=== PATIENT | female | born 1985 | race Caucasian/White ===

== ENCOUNTER 2016-06-13 16:43 | Emergency (ER) | payer OTHER ==
[~2016-06-13] VITALS: Ht 154.9 cm; Wt 54.5 kg
[~2016-06-13 16:43] MED LIST: ABILIFY2 MG PO; ADVIL,NUPRIN,M200 MG PO; ALBUTEROL1 GM MC; AMBIEN10 MG PO; AMOXICILLIN250 MG PO; ESCITALOPRAM OX10 MG PO; HYDROXYZINE PAM25 MG PO; LEXAPRO20 MG PO; METHADOSE40 MG PO; MIRTAZAPINE15 MG PO; MOTRIN800 MG PO; NOHOMEMEDS; PERCOCET 5/31 TABLET PO; PRILOSEC40 MG PO; SEROQUEL XR300 MG PO; TRAZODONE HCL50 MG PO; ZOFRAN ODT4 MG PO; ZOFRAN4 MG PO
[2016-06-13] MEDS ORDERED: MOTRIN600 MG PO (18:26)
[2016-06-13 18:32] VITALS: BP 136/87
== END 2016-06-13 18:32 | disposition home or self-care (01) ==
LOC: EME 16:43
DX: S93.402A Sprain of unspecified ligament of left ankle, initial encounter (principal); W00.0XXA Fall on same level due to ice and snow, initial encounter; F17.200 Nicotine dependence, unspecified, uncomplicated
CPT/HCPCS: 73610; 99281; 99283

== ENCOUNTER 2016-08-30 23:11 | Emergency (ER) | payer SELFPAY ==
[~2016-08-30] VITALS: Ht 154.9 cm; Wt 52.4 kg
[~2016-08-30 23:11] MED LIST changes: +MOTRIN600 MG PO
[2016-08-31] MEDS ORDERED: ZOFRAN ODT4 MG PO (01:22)
[2016-08-31] MEDS ORDERED: NAPROSYN500 MG PO (01:22)
[2016-08-31 01:44] VITALS: BP 134/81
== END 2016-08-31 01:45 | disposition home or self-care (01) ==
LOC: EME 23:11
DX: S09.90XA Unspecified injury of head, initial encounter (principal); M54.2 Cervicalgia; Y04.2XXA Assault by strike against or bumped into by another person, initial encounter; Y07.03 Male partner, perpetrator of maltreatment and neglect; F17.200 Nicotine dependence, unspecified, uncomplicated
CPT/HCPCS: 99281; 99284

== ENCOUNTER 2016-11-06 00:49 | Emergency (ER) | payer SELFPAY ==
[~2016-11-06] VITALS: Ht 162.6 cm; Wt 54.5 kg
[~2016-11-06 00:49] MED LIST changes: +NAPROSYN500 MG PO
[2016-11-06 01:25] LABS: HEMATOCRIT 40.6 % (36.0-46.0); MCH 31.1 PG (29.0-34.0); MCV 91.4 FL (83-99); MEAN PLAT.VOLUME 9.3 uM^3 (9.5-12.4); PLATELET COUNT 396 K/uL (156-360); RBC DIS.WIDTH-CV 12.3 % (11.8-14.6); RBC DIS.WIDTH-SD 41.1 % (39-53); RED BLOOD COUNT 4.44 M/uL (3.80-5.20); WHITE BLOOD COUNT 10.5 K/uL (4.1-10.2)
[2016-11-06 01:34] LABS: CHLORIDE 103 mEq/L (99-109); POTASSIUM 3.8 mEq/L (3.7-5.4); SODIUM 140 mEq/L (136-147)
[2016-11-06 01:37] LABS: ANION GAP 14 MEQ/L (2-14); GLUCOSE 114 mg/dL (70-99)
[2016-11-06 01:38] LABS: TOTAL BILIRUBIN 0.5 mg/dL (0.0-1.0)
[2016-11-06 01:40] LABS: ALKALINE PHOSPHATASE 39 IU/L (3-129); GFR ESTIMATE (CALCULATED) > 59 mL/min/
[2016-11-06 01:41] LABS: UREA NITROGEN (BUN) 10 mg/dL (9-23)
[2016-11-06 01:48] LABS: QUANTITATIVE HCG < 4.0 MIU/ML
[2016-11-06 05:35] LABS: BILIRUBIN NEGATIVE; BLOOD NEGATIVE; COLOR YELLOW ((YELLOW)); GLUCOSE (STRIP) NEGATIVE; KETONES 80; LEUKOCYTES NEGATIVE; NITRITE NEGATIVE; PROTEIN (STRIP) 30; UROBILINOGEN 0.2 MG/DL (0.2-1.0)
[2016-11-06 06:01] LABS: ADD MIUA? NO; UCUL ADDED? NO
[2016-11-06] MEDS ORDERED: CODEINE SULFATE30 MG PO (06:03)
[2016-11-06] MEDS ORDERED: REGLAN10 MG PO (06:03)
[2016-11-06 06:20] VITALS: BP 130/74
[2016-11-06 06:29] LABS: SPECIFIC GRAVITY 1.082 (1.000-1.030)
== END 2016-11-06 06:22 | disposition home or self-care (01) ==
LOC: EME 00:49
DX: K52.9 Noninfective gastroenteritis and colitis, unspecified (principal); E86.0 Dehydration; K50.90 Crohn's disease, unspecified, without complications; F31.9 Bipolar disorder, unspecified; F41.9 Anxiety disorder, unspecified; G47.00 Insomnia, unspecified; F17.200 Nicotine dependence, unspecified, uncomplicated
CPT/HCPCS: 74177; 80053; 81003; 84702; 85027; 99281; 99285; J1200; J1885; J2405; J2765; J3010; J7030

== ENCOUNTER 2016-11-18 23:41 | Emergency (ER) | payer SELFPAY ==
[~2016-11-18] VITALS: Ht 154.9 cm; Wt 47.1 kg
[~2016-11-18 23:41] MED LIST changes: +CODEINE SULFATE30 MG PO; +REGLAN10 MG PO
[2016-11-19 01:36] LABS: BASOPHIL COUNT 0.1 K/uL (0-0.1); EOSINOPHIL (%) 6.6 % (0-5); EOSINOPHIL COUNT 0.5 K/uL (0-0.3); HEMATOCRIT 35.9 % (36.0-46.0); IMMATURE GRANULOCYTE (%) 0.4 % (0.0-0.7); INSTRUMENT ABS NEUTROPHIL CT 3.8 K/uL; LYMPHOCYTE COUNT 2.2 K/uL (1.0-2.8); MCH 30.8 PG (29.0-34.0); MCHC 33.4 G/DL (30.0-36.0); MCV 92.3 FL (83-99); MEAN PLAT.VOLUME 9.2 uM^3 (9.5-12.4); MONOCYTE (%) 11.9 % (3-12); MONOCYTE COUNT 0.9 K/uL (0-0.8); NEUTROPHIL COUNT 3.8 K/uL (1.8-6.4); PLATELET COUNT 325 K/uL (156-360); RBC DIS.WIDTH-CV 12.7 % (11.8-14.6); RBC DIS.WIDTH-SD 42.6 % (39-53); RED BLOOD COUNT 3.89 M/uL (3.80-5.20); WHITE BLOOD COUNT 7.4 K/uL (4.1-10.2)
[2016-11-19 01:49] LABS: CHLORIDE 106 mEq/L (99-109); POTASSIUM 3.1 mEq/L (3.7-5.4); SODIUM 140 mEq/L (136-147)
[2016-11-19 01:51] LABS: GLUCOSE 157 mg/dL (70-99)
[2016-11-19 01:53] LABS: ANION GAP 7 MEQ/L (2-14)
[2016-11-19 01:54] LABS: SERUM ETHYL ALCOHOL < 10 mg/dL
[2016-11-19 01:55] LABS: GFR ESTIMATE (CALCULATED) > 59 mL/min/
[2016-11-19 01:57] LABS: UREA NITROGEN (BUN) 8 mg/dL (9-23)
[2016-11-19 01:58] LABS: SALICYLATE < 5.0 MG/DL (15-30)
[2016-11-19 03:09] VITALS: BP 136/87
== END 2016-11-19 03:10 | disposition home or self-care (01) ==
LOC: EME 23:41
PROVIDERS: Emergency Medicine
DX: F13.19 Sedative, hypnotic or anxiolytic abuse with unspecified sedative, hypnotic or anxiolytic-induced disorder (principal); F31.9 Bipolar disorder, unspecified; F60.3 Borderline personality disorder; E87.6 Hypokalemia; F17.200 Nicotine dependence, unspecified, uncomplicated
CPT/HCPCS: 80048; 85025; 90839; 93005; 99281; 99285; G0480

== ENCOUNTER 2016-11-22 17:30 | Inpatient (IN) | payer OTHER ==
[~2016-11-22] VITALS: Ht 154.9 cm; Wt 50.0 kg
[2016-11-22 18:20] LABS: HEMATOCRIT 37.8 % (36.0-46.0); MCH 30.9 PG (29.0-34.0); MCHC 32.8 G/DL (30.0-36.0); MCV 94.3 FL (83-99); PLATELET COUNT 328 K/uL (156-360); RBC DIS.WIDTH-CV 12.9 % (11.8-14.6); RBC DIS.WIDTH-SD 44.9 % (39-53); RED BLOOD COUNT 4.01 M/uL (3.80-5.20); WHITE BLOOD COUNT 7.5 K/uL (4.1-10.2)
[2016-11-22 18:28] LABS: CHLORIDE 102 mEq/L (99-109); SODIUM 138 mEq/L (136-147)
[2016-11-22 18:31] LABS: GLUCOSE 148 mg/dL (70-99)
[2016-11-22 18:32] LABS: ANION GAP 9 MEQ/L (2-14); TOTAL BILIRUBIN 0.2 mg/dL (0.0-1.0)
[2016-11-22 18:33] LABS: SERUM ETHYL ALCOHOL < 10 mg/dL
[2016-11-22 18:34] LABS: ALKALINE PHOSPHATASE 38 IU/L (3-129); GFR ESTIMATE (CALCULATED) > 59 mL/min/
[2016-11-22 18:35] LABS: UREA NITROGEN (BUN) 11 mg/dL (9-23)
[2016-11-22 18:39] LABS: POTASSIUM 3.9 mEq/L (3.7-5.4)
[2016-11-22 20:37] LABS: ADD MIUA? YES; BILIRUBIN NEGATIVE; BLOOD NEGATIVE; COLOR YELLOW ((YELLOW)); GLUCOSE (STRIP) NEGATIVE; KETONES NEGATIVE; LEUKOCYTES LARGE; NITRITE NEGATIVE; PROTEIN (STRIP) 30; SPECIFIC GRAVITY 1.018 (1.000-1.030); UROBILINOGEN 0.2 MG/DL (0.2-1.0)
[2016-11-22 20:51] LABS: AMPHETAMINE NEGATIVE (500 ng/mL); BARBITURATES NEGATIVE (200 ng/mL); BENZODIAZEPINES NEGATIVE (150 ng/mL); COCAINE PRESUMPTIVE POSITIVE (150 ng/mL); METHADONE NEGATIVE (200 ng/mL); METHAMPHETAMINE NEGATIVE (500 ng/mL); OPIATES (MORPHINE) NEGATIVE (100 ng/mL); OXYCODONE NEGATIVE (100 ng/mL); PHENCYCLIDINE NEGATIVE (25 ng/mL); THC CANNABINOIDS NEGATIVE (50 ng/mL); TRICYCLIC ANTIDEPRESSANTS NEGATIVE (300 ng/mL)
[2016-11-22 20:52] LABS: ADD MEDTOX COMMENT Y; INTERNAL CONTROLS VALID? YES; PROPOXYPHENE NEGATIVE (300 ng/mL)
[2016-11-22 21:04] LABS: BACTERIA 2+ /HPF; EPITHELIAL CELLS 4+ /HPF; MUCUS NONE SEEN /LPF; RED BLOOD CELLS 0-5 /HPF (0-5); WHITE BLOOD CELLS TNTC /HPF (0-5)
[2016-11-23 02:49] VITALS: BP 112/67
[2016-11-23 08:05] VITALS: BP 105/66
[2016-11-23 15:29] VITALS: BP 110/65
[2016-11-23 21:40] VITALS: BP 111/58
[2016-11-24 07:26] VITALS: BP 96/55
[2016-11-24 15:38] VITALS: BP 112/62
[2016-11-25 07:35] VITALS: BP 106/59
[2016-11-25 16:36] VITALS: BP 109/56
[2016-11-26 07:59] VITALS: BP 104/61
[2016-11-26 15:34] VITALS: BP 122/65
[2016-11-27 07:44] VITALS: BP 93/55
[2016-11-27] MEDS ORDERED: ESCITALOPRAM OX10 MG PO (10:02)
[2016-11-27] MEDS ORDERED: MIRTAZAPINE15 MG PO (10:02)
== END 2016-11-27 12:44 | disposition home or self-care (01) | DRG 897 ==
LOC: EME 17:30 → 1WEST 21:21 → EDOF 21:21 → 1WEST 11-23 02:30
PROVIDERS: Emergency Medicine
DX: F11.24 Opioid dependence with opioid-induced mood disorder (principal); R45.851 Suicidal ideations; Z68.1 Body mass index [BMI] 19.9 or less, adult; K50.90 Crohn's disease, unspecified, without complications; F11.23 Opioid dependence with withdrawal; F17.210 Nicotine dependence, cigarettes, uncomplicated; T22.019A Burn of unspecified degree of unspecified forearm, initial encounter; X76.XXXA Intentional self-harm by smoke, fire and flames, initial encounter; Z91.19 Patient's noncompliance with other medical treatment and regimen; Z91.14 Patient's other noncompliance with medication regimen
CPT/HCPCS: 80053; 81003; 84999; 85027; 90839; 97150 GO; 97165 GO; 99281; 99285; G0480; Q0169; Q0177

== ENCOUNTER 2016-12-04 22:36 | Emergency (ER) | payer SELFPAY ==
[~2016-12-04] VITALS: Ht 154.9 cm; Wt 50.0 kg
[2016-12-04 23:13] LABS: HEMATOCRIT 38.1 % (36.0-46.0); MCHC 33.6 G/DL (30.0-36.0); MCV 92.3 FL (83-99); MEAN PLAT.VOLUME 9.1 uM^3 (9.5-12.4); PLATELET COUNT 343 K/uL (156-360); RBC DIS.WIDTH-CV 11.9 % (11.8-14.6); RBC DIS.WIDTH-SD 40.4 % (39-53); RED BLOOD COUNT 4.13 M/uL (3.80-5.20); WHITE BLOOD COUNT 13.2 K/uL (4.1-10.2)
[2016-12-04 23:21] LABS: CHLORIDE 105 mEq/L (99-109); POTASSIUM 3.7 mEq/L (3.7-5.4); SODIUM 142 mEq/L (136-147)
[2016-12-04 23:23] LABS: GLUCOSE 125 mg/dL (70-99)
[2016-12-04 23:25] LABS: ANION GAP 9 MEQ/L (2-14); TOTAL BILIRUBIN 0.2 mg/dL (0.0-1.0)
[2016-12-04 23:27] LABS: ALKALINE PHOSPHATASE 41 IU/L (3-129); GFR ESTIMATE (CALCULATED) > 59 mL/min/
[2016-12-04 23:28] LABS: UREA NITROGEN (BUN) 10 mg/dL (9-23)
[2016-12-04 23:37] LABS: QUANTITATIVE HCG < 4.0 MIU/ML
[2016-12-05 02:50] LABS: LIPASE 20 U/L (1.0-51.0)
[2016-12-05 04:35] LABS: ADD MIUA? YES; BILIRUBIN NEGATIVE; BLOOD NEGATIVE; COLOR YELLOW ((YELLOW)); GLUCOSE (STRIP) 50; KETONES 20; LEUKOCYTES LARGE; NITRITE NEGATIVE; PROTEIN (STRIP) 30; SPECIFIC GRAVITY 1.029 (1.000-1.030); UROBILINOGEN 0.2 MG/DL (0.2-1.0)
[2016-12-05 04:39] LABS: BACTERIA NONE SEEN /HPF; EPITHELIAL CELLS 2+ /HPF; MUCUS TRACE /LPF; RED BLOOD CELLS 0-5 /HPF (0-5); UCUL ADDED? YES; WHITE BLOOD CELLS TNTC /HPF (0-5)
[2016-12-05] MEDS ORDERED: ZOFRAN ODT4 MG PO (05:22)
[2016-12-05 05:31] LABS: SERUM ETHYL ALCOHOL < 10 mg/dL
[2016-12-05 05:57] VITALS: BP 142/99
== END 2016-12-05 05:58 | disposition home or self-care (01) ==
LOC: EME 22:36
DX: R10.84 Generalized abdominal pain (principal); K50.90 Crohn's disease, unspecified, without complications; F17.200 Nicotine dependence, unspecified, uncomplicated
CPT/HCPCS: 74177; 80053; 81003; 83690; 84702; 85027; 87086; 99281; 99285; G0480; J2270; J2405; J7030

== ENCOUNTER 2016-12-05 10:11 | Inpatient (IN) | payer OTHER ==
[~2016-12-05] VITALS: Ht 154.9 cm; Wt 47.7 kg
[2016-12-05 12:06] LABS: HEMATOCRIT 38.5 % (36.0-46.0); MCH 30.9 PG (29.0-34.0); MCHC 33.5 G/DL (30.0-36.0); MCV 92.3 FL (83-99); MEAN PLAT.VOLUME 9.2 uM^3 (9.5-12.4); PLATELET COUNT 336 K/uL (156-360); RED BLOOD COUNT 4.17 M/uL (3.80-5.20); WHITE BLOOD COUNT 17.9 K/uL (4.1-10.2)
[2016-12-05 12:18] LABS: CHLORIDE 106 mEq/L (99-109); POTASSIUM 3.8 mEq/L (3.7-5.4); SODIUM 138 mEq/L (136-147)
[2016-12-05 12:19] LABS: GLUCOSE 109 mg/dL (70-99)
[2016-12-05 12:21] LABS: ANION GAP 10 MEQ/L (2-14)
[2016-12-05 12:23] LABS: GFR ESTIMATE (CALCULATED) > 59 mL/min/; SERUM ETHYL ALCOHOL < 10 mg/dL
[2016-12-05 12:25] LABS: UREA NITROGEN (BUN) 8 mg/dL (9-23)
[2016-12-05 12:26] LABS: SALICYLATE < 5.0 MG/DL (15-30)
[2016-12-05 12:39] LABS: ADD MEDTOX COMMENT Y; AMPHETAMINE NEGATIVE (500 ng/mL); BARBITURATES NEGATIVE (200 ng/mL); BENZODIAZEPINES NEGATIVE (150 ng/mL); COCAINE NEGATIVE (150 ng/mL); INTERNAL CONTROLS VALID? YES; METHADONE NEGATIVE (200 ng/mL); METHAMPHETAMINE NEGATIVE (500 ng/mL); OPIATES (MORPHINE) PRESUMPTIVE POSITIVE (100 ng/mL); OXYCODONE NEGATIVE (100 ng/mL); PHENCYCLIDINE NEGATIVE (25 ng/mL); PROPOXYPHENE NEGATIVE (300 ng/mL); THC CANNABINOIDS PRESUMPTIVE POSITIVE (50 ng/mL); TRICYCLIC ANTIDEPRESSANTS NEGATIVE (300 ng/mL)
[2016-12-05 17:25] VITALS: BP 139/86
[2016-12-05 17:51] VITALS: BP 139/86
[2016-12-06 07:20] VITALS: BP 110/65
[2016-12-07] MEDS ORDERED: REMERON15 M2 PO (20:42)
== END 2016-12-06 13:01 | disposition home or self-care (01) | DRG 881 ==
LOC: EME 10:11 → EDOF 15:32 → 1WEST 15:32
PROVIDERS: Emergency Medicine
DX: F32.9 Major depressive disorder, single episode, unspecified (principal); R45.851 Suicidal ideations; F17.200 Nicotine dependence, unspecified, uncomplicated; K50.90 Crohn's disease, unspecified, without complications
CPT/HCPCS: 80048; 84999; 85027; 90837; 99281; 99283; G0480; J2405; J2550; J7030; Q0169

== ENCOUNTER 2016-12-06 22:58 | Inpatient (IN) | payer OTHER ==
[~2016-12-06] VITALS: Ht 154.9 cm; Wt 53.5 kg
[2016-12-06 23:28] LABS: MCH 31.8 PG (29.0-34.0); MCHC 34.6 G/DL (30.0-36.0); MCV 91.8 FL (83-99); MEAN PLAT.VOLUME 9.3 uM^3 (9.5-12.4); PLATELET COUNT 323 K/uL (156-360); RBC DIS.WIDTH-CV 12.4 % (11.8-14.6); RBC DIS.WIDTH-SD 41.5 % (39-53); RED BLOOD COUNT 4.25 M/uL (3.80-5.20); WHITE BLOOD COUNT 13.9 K/uL (4.1-10.2)
[2016-12-06 23:35] LABS: INTER. NORMALIZED RATIO 1.1; PROTHROMBIN TIME 12.4 SEC (10.2-12.9)
[2016-12-06 23:37] LABS: CHLORIDE 102 mEq/L (99-109); POTASSIUM 3.5 mEq/L (3.7-5.4); SODIUM 139 mEq/L (136-147)
[2016-12-06 23:38] LABS: PTT 20.8 SEC (25-37)
[2016-12-06 23:39] LABS: GLUCOSE 88 mg/dL (70-99)
[2016-12-06 23:40] LABS: ANION GAP 13 MEQ/L (2-14)
[2016-12-06 23:42] LABS: SERUM ETHYL ALCOHOL < 10 mg/dL
[2016-12-06 23:43] LABS: ALKALINE PHOSPHATASE 38 IU/L (3-129); GFR ESTIMATE (CALCULATED) > 59 mL/min/
[2016-12-06 23:45] LABS: UREA NITROGEN (BUN) 17 mg/dL (9-23)
[2016-12-06 23:46] LABS: SALICYLATE < 5.0 MG/DL (15-30); TOTAL BILIRUBIN 0.3 mg/dL (0.0-1.0)
[2016-12-06 23:47] LABS: LIPASE 24 U/L (1.0-51.0)
[2016-12-06 23:55] LABS: QUANTITATIVE HCG < 4.0 MIU/ML
[2016-12-07 01:21] LABS: ADD MIUA? YES; BILIRUBIN NEGATIVE; BLOOD SMALL; COLOR YELLOW ((YELLOW)); GLUCOSE (STRIP) NEGATIVE; KETONES 20; LEUKOCYTES TRACE; NITRITE NEGATIVE; PROTEIN (STRIP) NEGATIVE; SPECIFIC GRAVITY 1.025 (1.000-1.030); UROBILINOGEN 0.2 MG/DL (0.2-1.0)
[2016-12-07 01:33] LABS: BACTERIA NONE SEEN /HPF; EPITHELIAL CELLS RARE /HPF; MUCUS 4+ /LPF; RED BLOOD CELLS 20-30 /HPF (0-5); UCUL ADDED? NO; WHITE BLOOD CELLS 0-5 /HPF (0-5)
[2016-12-07 06:00] VITALS: BP 115/65
[2016-12-07 07:36] VITALS: BP 109/70
[2016-12-07 08:12] LABS: ADD MEDTOX COMMENT Y; AMPHETAMINE NEGATIVE (500 ng/mL); BARBITURATES NEGATIVE (200 ng/mL); BENZODIAZEPINES NEGATIVE (150 ng/mL); COCAINE NEGATIVE (150 ng/mL); INTERNAL CONTROLS VALID? YES; METHADONE NEGATIVE (200 ng/mL); METHAMPHETAMINE NEGATIVE (500 ng/mL); OPIATES (MORPHINE) PRESUMPTIVE POSITIVE (100 ng/mL); OXYCODONE NEGATIVE (100 ng/mL); PHENCYCLIDINE NEGATIVE (25 ng/mL); PROPOXYPHENE NEGATIVE (300 ng/mL); THC CANNABINOIDS PRESUMPTIVE POSITIVE (50 ng/mL); TRICYCLIC ANTIDEPRESSANTS NEGATIVE (300 ng/mL)
[2016-12-07 10:22] LABS: HEMATOCRIT 36.5 % (36.0-46.0); MCH 30.8 PG (29.0-34.0); MCHC 32.6 G/DL (30.0-36.0); MCV 94.6 FL (83-99); MEAN PLAT.VOLUME 9.3 uM^3 (9.5-12.4); PLATELET COUNT 298 K/uL (156-360); RBC DIS.WIDTH-CV 12.7 % (11.8-14.6); RED BLOOD COUNT 3.86 M/uL (3.80-5.20); WHITE BLOOD COUNT 9.3 K/uL (4.1-10.2)
[2016-12-07 10:46] LABS: ANION GAP 11 MEQ/L (2-14); CHLORIDE 110 MEQ/L (99-109); GFR ESTIMATE (CALCULATED) > 59 mL/min/; GLUCOSE 74 mg/dL (70-99); POTASSIUM 3.8 MEQ/L (3.7-5.4); SAMPLE HEMOLYSIS CHECK 0; SAMPLE ICTERIC CHECK 0; SAMPLE LIPEMIA CHECK 0; SODIUM 143 MEQ/L (136-147); UREA NITROGEN (BUN) 12 mg/dL (9-23)
[2016-12-07 11:35] VITALS: BP 96/61
[2016-12-07 13:15] LABS: CHLAMYDIA TRACHOMATIS POSITIVE; NEISSERIA GONORRHOEAE NEGATIVE
[2016-12-07 16:04] VITALS: BP 93/64
[2016-12-07 20:31] VITALS: BP 106/54
[2016-12-07] MEDS ORDERED: REMERON15 M2 PO (20:42)
[2016-12-08 00:10] VITALS: BP 89/54
[2016-12-08 04:17] VITALS: BP 95/51
[2016-12-08 07:50] VITALS: BP 111/62
[2016-12-08 11:16] VITALS: BP 98/59
[2016-12-08 16:00] VITALS: BP 102/59
[2016-12-08 19:39] VITALS: BP 109/57
[2016-12-09 00:03] VITALS: BP 109/68
[2016-12-09 05:05] VITALS: BP 110/65
[2016-12-09 08:10] VITALS: BP 121/76
[2016-12-09 08:35] VITALS: BP 117/69
[2016-12-09] MEDS ORDERED: THERAGRAN1 TABLET PO (11:11)
[2016-12-09] MEDS ORDERED: CLONIDINE HCL0.1 MG PO (11:17)
[2016-12-09] MEDS ORDERED: DOXYCYCLINE HY100 M3 PO (11:19)
[2016-12-09] MEDS ORDERED: CIPRO500 MG PO (11:22)
[2016-12-09 11:48] VITALS: BP 115/70
[2016-12-19] MEDS ORDERED: ESCITALOPRAM OX10 MG PO
== END 2016-12-09 13:10 | disposition home or self-care (01) | DRG 392 ==
LOC: EME 22:58 → 5WEST 12-07 03:46 → EDOF 12-07 03:46 → 5WEST 12-07 05:49 → 3EAST 12-08 15:52
PROVIDERS: Emergency Medicine; Hospitalist
DX: K52.9 Noninfective gastroenteritis and colitis, unspecified (principal); R78.81 Bacteremia; R30.0 Dysuria; F17.200 Nicotine dependence, unspecified, uncomplicated; R11.2 Nausea with vomiting, unspecified; R19.7 Diarrhea, unspecified; F43.10 Post-traumatic stress disorder, unspecified; F11.20 Opioid dependence, uncomplicated; A59.9 Trichomoniasis, unspecified; F41.8 Other specified anxiety disorders; F19.10 Other psychoactive substance abuse, uncomplicated; F31.9 Bipolar disorder, unspecified; A56.09 Other chlamydial infection of lower genitourinary tract; Z59.0 Homelessness; Z91.5 Personal history of self-harm; Z76.5 Malingerer [conscious simulation]
CPT/HCPCS: 74177; 76705; 80048; 80053; 80306 90; 81003; 83605; 83690; 84702; 84999; 85027; 85610; 85730; 87040; 87210; 87491; 87493; 87591; 87801; 99281; 99285; G0378; G0480; J0696; J0744; J1885; J2270; J2405; J3370; J7030; J7050; J7120; Q0169; S0030

== ENCOUNTER 2016-12-12 01:38 | Emergency (ER) | payer OTHER ==
[~2016-12-12] VITALS: Ht 154.9 cm; Wt 49.1 kg
[~2016-12-12 01:38] MED LIST changes: +CIPRO500 MG PO; +CLONIDINE HCL0.1 MG PO; +DOXYCYCLINE HY100 M3 PO; +REMERON15 M2 PO; +THERAGRAN1 TABLET PO
[2016-12-12] MEDS ORDERED: NARCAN4 MG NS (02:06)
[2016-12-12 02:08] LABS: ADD MIUA? YES; BILIRUBIN NEGATIVE; BLOOD NEGATIVE; COLOR YELLOW ((YELLOW)); GLUCOSE (STRIP) >=500; KETONES NEGATIVE; LEUKOCYTES TRACE; NITRITE NEGATIVE; PROTEIN (STRIP) 100; SPECIFIC GRAVITY 1.012 (1.000-1.030); UROBILINOGEN 0.2 MG/DL (0.2-1.0)
[2016-12-12 02:19] LABS: AMPHETAMINE NEGATIVE (500 ng/mL); BARBITURATES NEGATIVE (200 ng/mL); BENZODIAZEPINES PRESUMPTIVE POSITIVE (150 ng/mL); COCAINE PRESUMPTIVE POSITIVE (150 ng/mL); INTERNAL CONTROLS VALID? YES; METHADONE NEGATIVE (200 ng/mL); METHAMPHETAMINE NEGATIVE (500 ng/mL); OPIATES (MORPHINE) PRESUMPTIVE POSITIVE (100 ng/mL); OXYCODONE NEGATIVE (100 ng/mL); PHENCYCLIDINE NEGATIVE (25 ng/mL); PROPOXYPHENE NEGATIVE (300 ng/mL); THC CANNABINOIDS NEGATIVE (50 ng/mL); TRICYCLIC ANTIDEPRESSANTS NEGATIVE (300 ng/mL)
[2016-12-12 02:20] LABS: ADD MEDTOX COMMENT Y
[2016-12-12 02:23] LABS: BACTERIA 1+ /HPF; EPITHELIAL CELLS 1+ /HPF; MUCUS 3+ /LPF; RED BLOOD CELLS 0-5 /HPF (0-5); UCUL ADDED? NO
[2016-12-12 02:47] VITALS: BP 140/93
[2016-12-12 03:29] LABS: BENZODIAZEPINES, URINE SCREEN POSITIVE (200 ng/mL)
== END 2016-12-12 02:49 | disposition home or self-care (01) ==
LOC: EME → EDBD 01:38 → EME 02:49
PROVIDERS: Emergency Medicine
DX: T40.1X1A Poisoning by heroin, accidental (unintentional), initial encounter (principal); F11.10 Opioid abuse, uncomplicated; K50.90 Crohn's disease, unspecified, without complications; F32.9 Major depressive disorder, single episode, unspecified; F43.10 Post-traumatic stress disorder, unspecified; F17.200 Nicotine dependence, unspecified, uncomplicated; G47.00 Insomnia, unspecified
CPT/HCPCS: 81003; 84999; 99281; 99285; J2310

== ENCOUNTER 2016-12-14 20:30 | Emergency (ER) | payer OTHER ==
[~2016-12-14] VITALS: Ht 162.6 cm; Wt 48.8 kg
[~2016-12-14 20:30] MED LIST changes: +NARCAN4 MG NS
[2016-12-14 21:17] LABS: EOSINOPHIL (%) 1.7 % (0-5); EOSINOPHIL COUNT 0.2 K/uL (0-0.3); HEMATOCRIT 38.2 % (36.0-46.0); IMMATURE GRANULOCYTE (%) 0.3 % (0.0-0.7); INSTRUMENT ABS NEUTROPHIL CT 7.3 K/uL; LYMPHOCYTE COUNT 1.3 K/uL (1.0-2.8); MCH 31.2 PG (29.0-34.0); MCHC 33.5 G/DL (30.0-36.0); MCV 93.2 FL (83-99); MONOCYTE (%) 7.9 % (3-12); MONOCYTE COUNT 0.8 K/uL (0-0.8); NEUTROPHIL (%) 76.7 % (45-76); NEUTROPHIL COUNT 7.3 K/uL (1.8-6.4); PLATELET COUNT 379 K/uL (156-360); RBC DIS.WIDTH-SD 44.3 % (39-53); WHITE BLOOD COUNT 9.6 K/uL (4.1-10.2)
[2016-12-14 21:26] LABS: CHLORIDE 105 mEq/L (99-109); POTASSIUM 3.3 mEq/L (3.7-5.4); SODIUM 144 mEq/L (136-147)
[2016-12-14 21:28] LABS: GLUCOSE 94 mg/dL (70-99)
[2016-12-14 21:29] LABS: ANION GAP 12 MEQ/L (2-14)
[2016-12-14 21:30] LABS: TOTAL BILIRUBIN 0.2 mg/dL (0.0-1.0)
[2016-12-14 21:31] LABS: ALKALINE PHOSPHATASE 43 IU/L (3-129)
[2016-12-14 21:32] LABS: GFR ESTIMATE (CALCULATED) > 59 mL/min/
[2016-12-14 21:33] LABS: DIRECT BILIRUBIN 0.1 mg/dL (0.0-0.3); UREA NITROGEN (BUN) 7 mg/dL (9-23)
[2016-12-14 21:35] LABS: LIPASE 17 U/L (1.0-51.0)
[2016-12-14] MEDS ORDERED: ANTIVERT25 MG PO (21:55)
[2016-12-14] MEDS ORDERED: BENTYL20 MG PO (22:11)
[2016-12-14] MEDS ORDERED: MAALOX ADVANCE355 ML PO (22:11)
[2016-12-14 23:14] VITALS: BP 155/97
[2016-12-19] MEDS ORDERED: ESCITALOPRAM OX10 MG PO
== END 2016-12-14 23:21 | disposition home or self-care (01) ==
LOC: EME → EDBD 20:30 → EME 20:30
PROVIDERS: Emergency Medicine
DX: R10.9 Unspecified abdominal pain (principal); F11.10 Opioid abuse, uncomplicated; E07.9 Disorder of thyroid, unspecified; F32.9 Major depressive disorder, single episode, unspecified; F43.10 Post-traumatic stress disorder, unspecified; F17.200 Nicotine dependence, unspecified, uncomplicated
CPT/HCPCS: 74177; 80048; 80076; 83605; 83690; 85025; 99281; 99284; J1100; J1630; J2405; J3010; J7030

== ENCOUNTER 2016-12-19 22:54 | Emergency (ER) | payer OTHER ==
[~2016-12-19] VITALS: Ht 154.9 cm; Wt 52.3 kg
[~2016-12-19 22:54] MED LIST changes: +ANTIVERT25 MG PO; +BENTYL20 MG PO; +MAALOX ADVANCE355 ML PO
[2016-12-19 23:55] LABS: ADD MIUA? YES; BILIRUBIN NEGATIVE; BLOOD NEGATIVE; COLOR YELLOW ((YELLOW)); GLUCOSE (STRIP) NEGATIVE; KETONES NEGATIVE; LEUKOCYTES MODERATE; NITRITE NEGATIVE; PROTEIN (STRIP) 30; SPECIFIC GRAVITY 1.019 (1.000-1.030); UROBILINOGEN 0.2 MG/DL (0.2-1.0)
[2016-12-19] MEDS ORDERED: MIRTAZAPINE15 MG PO (23:59)
[2016-12-20 00:04] LABS: BACTERIA 1+ /HPF; EPITHELIAL CELLS 1+ /HPF; MUCUS 4+ /LPF; WHITE BLOOD CELLS TNTC /HPF (0-5)
[2016-12-20 00:25] LABS: HEMATOCRIT 35.2 % (36.0-46.0); MCH 31.2 PG (29.0-34.0); MCV 94.6 FL (83-99); MEAN PLAT.VOLUME 8.9 uM^3 (9.5-12.4); PLATELET COUNT 270 K/uL (156-360); RBC DIS.WIDTH-CV 13.2 % (11.8-14.6); RBC DIS.WIDTH-SD 45.9 % (39-53); RED BLOOD COUNT 3.72 M/uL (3.80-5.20); WHITE BLOOD COUNT 8.8 K/uL (4.1-10.2)
[2016-12-20 00:39] LABS: CHLORIDE 104 mEq/L (99-109); POTASSIUM 3.7 mEq/L (3.7-5.4); SODIUM 139 mEq/L (136-147)
[2016-12-20 00:41] LABS: GLUCOSE 102 mg/dL (70-99)
[2016-12-20 00:43] LABS: ANION GAP 9 MEQ/L (2-14); TOTAL BILIRUBIN 0.2 mg/dL (0.0-1.0)
[2016-12-20 00:45] LABS: ALKALINE PHOSPHATASE 41 IU/L (3-129); GFR ESTIMATE (CALCULATED) > 59 mL/min/
[2016-12-20 00:46] LABS: UREA NITROGEN (BUN) 7 mg/dL (9-23)
[2016-12-20 00:54] LABS: QUANTITATIVE HCG < 4.0 MIU/ML
[2016-12-20 01:23] LABS: ABS NEUTROPHIL COUNT 6.7; ANISOCYTOSIS 1+; BASOPHILS 1.7 %; EOSINOPHIL ABS CT 0; INSTRUMENT ABS NEUTROPHIL CT 6.1 K/uL; LYMPHOCYTES 13.9 % (15.0-45.0); MACROCYTES 1+; OVALOCYTES 1+; PLAT.SUFFICIENCY ADEQUATE; SEG.NEUTROPHILS 75.7 % (46.0-76.0)
[2016-12-20] MEDS ORDERED: FLUCONAZOLE150 MG PO (02:28)
[2016-12-20 02:39] VITALS: BP 116/73
[2016-12-21 13:37] LABS: CHLAMYDIA TRACHOMATIS POSITIVE; NEISSERIA GONORRHOEAE NEGATIVE
== END 2016-12-20 02:40 | disposition home or self-care (01) ==
LOC: EME 22:54
PROVIDERS: Emergency Medicine
DX: N76.0 Acute vaginitis (principal); Z86.19 Personal history of other infectious and parasitic diseases; F17.200 Nicotine dependence, unspecified, uncomplicated
CPT/HCPCS: 80053; 81003; 83605; 84702; 85025; 87040; 87086; 87210; 87254; 87491; 87591; 99281; 99285; J3010; J7030

== ENCOUNTER 2017-06-09 15:13 | Emergency (ER) | payer OTHER ==
[~2017-06-09] VITALS: Ht 154.9 cm; Wt 60.9 kg
[~2017-06-09 15:13] MED LIST changes: +FLUCONAZOLE150 MG PO
[2017-06-09] MEDS ORDERED: VALACYCLOVIR1000 MG PO (16:39)
[2017-06-09 16:56] VITALS: BP 122/77
== END 2017-06-09 16:57 | disposition home or self-care (01) ==
LOC: EME 15:13
DX: A60.00 Herpesviral infection of urogenital system, unspecified (principal); K50.90 Crohn's disease, unspecified, without complications; F17.200 Nicotine dependence, unspecified, uncomplicated; Z88.6 Allergy status to analgesic agent
CPT/HCPCS: 99281; 99283

== ENCOUNTER 2017-06-19 20:46 | Emergency (ER) | payer OTHER ==
[~2017-06-19] VITALS: Ht 154.9 cm; Wt 63.5 kg
[~2017-06-19 20:46] MED LIST changes: +VALACYCLOVIR1000 MG PO
[2017-06-19 21:57] LABS: BASOPHIL (%) 0.2 % (0-1); EOSINOPHIL (%) 4.4 % (0-5); EOSINOPHIL COUNT 0.6 K/uL (0-0.3); HEMATOCRIT 33.6 % (36.0-46.0); HEMOGLOBIN 11.5 G/DL (11.9-15.5); IMMATURE GRANULOCYTE (%) 0.3 % (0.0-0.7); LYMPHOCYTE COUNT 1.8 K/uL (1.0-2.8); MCH 31.6 PG (29.0-34.0); MCHC 34.2 G/DL (30.0-36.0); MCV 92.3 FL (83-99); MONOCYTE (%) 13.3 % (3-12); MONOCYTE COUNT 1.8 K/uL (0-0.8); NEUTROPHIL (%) 67.8 % (45-76); NEUTROPHIL COUNT 8.9 K/uL (1.8-6.4); PLATELET COUNT 349 K/uL (156-360); RBC DIS.WIDTH-CV 12.8 % (11.8-14.6); RBC DIS.WIDTH-SD 43.5 % (39-53); RED BLOOD COUNT 3.64 M/uL (3.80-5.20); WHITE BLOOD COUNT 13.1 K/uL (4.1-10.2)
[2017-06-19 22:07] LABS: CHLORIDE 104 mEq/L (99-109); POTASSIUM 4.2 mEq/L (3.7-5.4); SODIUM 137 mEq/L (136-147)
[2017-06-19 22:08] LABS: GLUCOSE 102 mg/dL (70-99)
[2017-06-19 22:12] LABS: CREATININE 0.8 mg/dL (0.6-1.3); GFR ESTIMATE (CALCULATED) > 59 mL/min/
[2017-06-19 22:13] LABS: UREA NITROGEN (BUN) 14 mg/dL (9-23)
[2017-06-20] MEDS ORDERED: PEN-VEE K,VEET500 MG PO (01:08)
[2017-06-20 01:17] VITALS: BP 122/78
== END 2017-06-20 01:26 | disposition home or self-care (01) ==
LOC: RME 20:46 → EME 20:46 → RME 06-20 01:26
PROVIDERS: Physician Assistant
DX: K04.7 Periapical abscess without sinus (principal); K02.9 Dental caries, unspecified; K50.90 Crohn's disease, unspecified, without complications; Z88.6 Allergy status to analgesic agent; Z88.8 Allergy status to other drugs, medicaments and biological substances
CPT/HCPCS: 70487; 80048; 85025; 99281; 99285; J0295; J1885; J7040; J7050